=== PATIENT | female | born 1980 | race Caucasian/White ===

== ENCOUNTER 2019-11-20 22:26 | Emergency (ER) | payer OTHER ==
[2019-11-20 22:33] VITALS: BMI 26.6
--- NOTE | 2019-11-21 00:06 | PDOC ---
History of Present Illness - General Chief Complaint: Shortness of Breath Stated Complaint: SOB Time Seen by Provider: 11/20/19 23:56 History Source: Patient - History of Present Illness Initial Comments: 11/21/19 03:29 39-year-old female complaining of panic attack at home feeling shortness of breath, Difficulty sleeping, "I feel like I am " . Patient reports that 2 months ago she had overdosed on pills with suicidal intent due to depression. Patient reports that she is currently not feeling depressed or suicidal ideation. Reports home being a stressful environment Past History - Medical History Allergies/Adverse Reactions: Allergies Allergy/AdvReac Type Severity Reaction Status Date / Time No Known Allergies Allergy Verified 03/30/19 14:38 Home Medications: Ambulatory Orders Naltrexone HCl 50 mg PO DAILY #7 tablet 03/30/19 Nicotine [Nicotine Patch 21 mg/24 hr] 1 each TD DAILY #30 patch.td24 03/30/19 Fluoxetine HCl [Prozac] 10 mg PO DAILY #14 capsule 04/30/19 Fluoxetine HCl [Prozac] 20 mg PO DAILY #30 capsule 05/16/19 Anemia: No Asthma: No Cancer: No Cardiac Disorders: No CVA: No CHF: No Diabetes: No GI Disorders: No Disorders: No HTN: No Hypercholesterolemia: No Liver Disease: No Seizures: No Thyroid Disease: No - Reproductive History Is Patient Now?: No - Psycho-Social/Smoking History Smoking History: Never smoked Have you smoked in the past 12 months: Yes Number of Cigarettes Smoked Daily: 20 'Breaking Loose' booklet given: 03/30/19 - Substance Abuse Hx (Audit-C & DAST Scrn) How often the patient has a drink containing alcohol: 2-3 times / week Number of drinks the patient has on a typical day: 3 or 4 How often the patient has six or more drinks on one occasion: Never Score: In Men: 4 or > Positive; In Women: 3 or > Positive: 4 Screen Result (Pos requires Nsg. Audit-10AR): Positive In the last yr the pt used illegal drug/Rx for NonMed reason: No Score: Yes response is considered Positive: 0 Screen Result (Positive result requires Nsg. DAST-10): Negative Review of Systems - Review of Systems Able to Perform ROS?: Yes Is the patient limited Nepali proficient: No Constitutional: No: Symptoms Reported, See HPI, Chills, Diaphoresis, Fever, Loss of Appetite, Malaise, Night Sweats, Weakness, Weight Stable, Unintentional Wgt. Loss, Unexplained wgt Loss, Other ABD/GI: Yes: Nausea, Vomiting, Abdominal cramping Integumentary: No: Symptoms Reported, See HPI, Bruising, Change in Color, Change in Hair/Nails, Dryness, Erythema, Flushing, Lesions, Lumps, Pallor, Pruritus, Rash, Sweating, Other Neurological: No: Symptoms reported, See HPI, Headache, Numbness, Paresthesia, Pre-Existing Deficit, Seizure, Tingling, Tremors, Weakness, Unsteady Gait, Ataxia, Dizziness, Other *Physical Exam - Vital Signs Last Vital Signs Temp Pulse Resp BP Pulse Ox 98.1 F 97 H 20 122/69 97 11/20/19 22:29 11/20/19 22:29 11/20/19 22:29 11/20/19 22:29 11/20/19 22:29 - Physical Exam General Appearance: Yes: Appropriately Dressed Respiratory/Chest: positive: Lungs Clear, Normal Breath Sounds Cardiovascular: positive: Regular Rhythm, Regular Rate Extremity: positive: Normal Capillary Refill, Normal Inspection, Normal Range of Motion Integumentary: positive: Normal Color, Dry, Warm Neurologic: positive: Fully Oriented, Alert ED Treatment Course - RADIOLOGY Radiology Studies Ordered: Category Date Time Status CHEST PA & LAT [RAD] Stat Radiology 11/20/19 23:33 Ordered Medical Decision Making - Medical Decision Making 11/21/19 06:08 A: hyperglycemia; DKA P: labs IVF BGM transfer to acute pediatric care facility Discharge - Discharge Information Problems reviewed: Yes Clinical Impression/Diagnosis: Anxiety Disposition: HOME - Follow up/Referral Referrals: ON STAFF,NOT [Primary Care Provider] - - Patient Discharge Instructions Patient Printed Discharge Instructions: DI for Anxiety -- Adult Additional Instructions: It is important that you follow-up with your psychiatrist and your primary doctor soon as possible. Return to the emergency room for any worsening symptoms - Post Discharge Activity Work/Back to School Note: My Personal Safety Plan
[2019-11-21 01:27] LABS: PH,URINE 5.5 (5.0-8.0); URINE APPEARANCE CLEAR; URINE BILIRUBIN NEGATIVE (NEGATIVE); URINE COLOR YELLOW; URINE GLUCOSE (UA) NEGATIVE (NEGATIVE); URINE KETONE NEGATIVE (NEGATIVE); URINE LEUK ESTERASE NEGATIVE (NEGATIVE); URINE NITRITE NEGATIVE (NEGATIVE); URINE PROTEIN NEGATIVE (NEGATIVE)
[2019-11-21 01:30] LABS: HCG,QUALITATIVE URINE Negative
[2019-11-21 06:26] VITALS: BP 114/62; PULSE 85; TEMP 98
== END 2019-11-21 04:05 | disposition home or self-care (01) ==
LOC: JER 22:26
DX: F41.9 Anxiety disorder, unspecified (principal)
CPT/HCPCS: 71046-TC-FY; 81003; 84703; 99284-25